=== PATIENT | male | born 1960 | race Caucasian/White ===

== ENCOUNTER 2021-09-03 14:51 | Emergency (ER) | payer OTHER ==
[2021-09-03] MEDS ORDERED: Sodium Chloride 0.9% 10 ML Syringe FLUSH PRN (16:06)
[2021-09-03] MEDS ORDERED: HYDROmorphone 0.5 MG/0.5 ML Syringe IVPUSH ONE ×2 (16:06→21:08)
[2021-09-03] MEDS ORDERED: Ondansetron 4 MG/2 ML SDV IVPUSH ONE (16:06)
[2021-09-03 16:45] LABS: ESTIMATED GFR 98 mL/min (>60)
[2021-09-03] MEDS ORDERED: Iopamidol 612 MG/ML 100 ML Bottle IV ONE (16:55)
[2021-09-03] MEDS ORDERED: Sodium Chloride 0.9% 75 ML IV SCH (17:00)
[2021-09-03] MEDS ORDERED: Lidocaine 1% with EPINEPHrine 1:100,000 50 ML MDV INFILT ONE (18:42)
[2021-09-03] MEDS ORDERED: Bacitracin Oint 1 GM U/D Packet TOP ONE (18:42)
[2021-09-03] MEDS ORDERED: Diphtheria,Pertussis(Acell),Tetanus Vaccine 0.5 ML Syringe IM ONE (19:06)
== END 2021-09-03 21:40 | disposition home or self-care (01) ==
LOC: JP.ED 14:51
DX: S81.012A Laceration without foreign body, left knee, initial encounter (principal); S39.012A Strain of muscle, fascia and tendon of lower back, initial encounter; S20.211A Contusion of right front wall of thorax, initial encounter; S40.022A Contusion of left upper arm, initial encounter; Z23 Encounter for immunization; V49.9XXA Car occupant (driver) (passenger) injured in unspecified traffic accident, initial encounter
CPT/HCPCS: 12001; 36415; 70450; 71260; 73562; 74177; 80053; 81001; 85025; 90471; 90715; 96374; 96375; 96376; 99284; J1170; J2405; J3490; Q9967